=== PATIENT | female | born 1985 | race Caucasian/White ===

== ENCOUNTER 2016-06-23 19:32 | Emergency (ER) | payer MEDICAID, OTHER ==
[~2016-06-23] VITALS: Ht 162.6 cm; Wt 77.0 kg
[~2016-06-23 19:32] MED LIST: NO MEDS
[2016-06-23 19:39] VITALS: Ht 162.6 cm; Wt 77.0 kg
[2016-06-23] MEDS ORDERED: DICY20TA59 PO (19:43)
[2016-06-23] MEDS ORDERED: IBUP-1542 PO (19:43)
[2016-06-23] MEDS ORDERED: ONDA4TAB14 PO (19:43)
--- NOTE | 2016-06-23 19:48 | ERD ---
ER Documentation Chief Complaint Date/Time DATE: 06/23/16 TIME: 19:46 Chief Complaint upper nabd pain , diarrhea. N/V HPI 30-year-old female presents here in emergency department for complains of abdominal pain diarrhea and vomiting started today. Had 2 episodes of diarrhea, 6 episodes of vomiting. Patient is complaining of generalized abdominal pain, cramping pain, for/10 scale, intermittent, accompanying the diarrhea and vomiting. Patient has been having on and off fever. Patient took Pepto-Bismol at home with mild relief. Patient denies difficulty. Patient denies any hematuria or dysuria. Patient denies any sick contacts. Patient denies any recent travel. ROS All systems reviewed and are negative except as per history of present illness. Medications Home Meds Active Scripts Ondansetron (Ondansetron Odt) 4 Mg Tab.rapdis, 4 MG PO Q8 Y for NAUSEA AND/OR VOMITING, #30 TAB Prov:KINDRA MARTINEZ [employer] 06/23/16 Ibuprofen* (Motrin*) 600 Mg Tab, 600 MG PO Q6H Y for PAIN AND OR ELEVATED TEMP, #30 TAB Prov:KINDRA MARTINEZ [employer] 06/23/16 Dicyclomine Hcl* (Bentyl*) 20 Mg Tablet, 20 MG PO QID, #20 TAB Prov:KINDRA MARTINEZ [employer] 06/23/16 Reported Medications [No Meds] No Conflict Check 05/29/12 Allergies Allergies: Coded Allergies: No Known Allergy (Verified , 02/10/14) PMhx/Soc Medical and Surgical Hx: pt denies Medical Hx, pt denies Surgical Hx Hx Alcohol Use: Yes (DRINKS OCCASSIONALLY) Hx Substance Use: No Hx Tobacco Use: No FmHx Family History: No coronary disease, No diabetes, No other Physical Exam Vitals Vital Signs Date Time Temp Pulse Resp B/P Pulse Ox O2 Delivery O2 Flow Rate FiO2 06/23/16 19:39 97.0 86 20 132/60 100 Physical Exam GENERAL: The patient is well developed and appropriate for usual state of health, in no apparent distress. CHEST: Clear to auscultation bilaterally. There are no rales, wheezes or rhonchi. HEART: Regular rate and rhythm. No murmurs, clicks, rubs or gallops. No S3 or S4. ABDOMEN: Soft, nontender and nondistended. Hyperactive bowel sounds. No rebound or guarding. No gross peritonitis. No gross organomegaly or masses. No Dsouza sign or McBurney point tenderness. BACK: No midline or flank tenderness. EXTREMITIES: Equal pulses bilaterally. There is no peripheral clubbing, cyanosis or edema. No focal swelling or erythema. Full range of motion. Grossly neurovascularly intact. NEURO: Alert and oriented. Cranial nerves 2-12 intact. Motor strength in all 4 extremities with 5/5 strength. Sensation grossly intact. Normal speech and gait. SKIN: There is no apparent rash or petechia. The skin is warm and dry. HEMATOLOGIC AND LYMPHATIC: There is no evidence of excessive bruising or lymphedema. No gross cervical, axillary, or inguinal lymphadenopathy. Procedures/MDM Medical Decision Making: Patient's abdominal pain vomiting and diarrhea most likely consistent with viral gastroenteritis. There is low suspicion for abdominal emergencies at this time. Patients abdominal exam is normal at this time. Radiology exams or laboratory testing aren't indicated at this time. Patient's able to tolerate oral fluids. No symptoms of dehydration at this time. There is low suspicion for appendicitis, cholecystitis, abdominal aortic aneurysms or peritonitis at this time. There is low suspicion for sepsis. Patient appears well and is hemodynamically stable. Disposition: Home. Condition: Stable Prescription Bentyl, Zofran, ibuprofen Instructions: Patient is advised to take medications as prescribed. Patient is advised to rest, increase fluid intake and do brat diet for next 1-2 days and progress as tolerated. Patient is advised that if symptoms are worse, severe abdominal pain, uncontrolled vomiting, high fever, severe flank pain, worst signs and symptoms, to return to the emergency department immediately. Otherwise, patient can follow up with primary care doctor in 5-7 days. Departure Diagnosis: Primary Impression: Viral gastroenteritis Condition: Stable Patient Instructions: Gastroenteritis, Viral (6Y-Adult) KINDRA MARTINEZ NP Jun 23, 2016 19:47
== END 2016-06-23 19:45 | disposition home or self-care (01) ==
LOC: E/R 19:32
DX: A08.4 Viral intestinal infection, unspecified (principal); R11.2 Nausea with vomiting, unspecified
CPT/HCPCS: 99284